=== PATIENT | male | born 1955 | race Asian ===

== ENCOUNTER 2018-03-10 13:32 | Inpatient (IN) | payer BC ==
[~2018-03-10] VITALS: Ht 172.7 cm; Wt 110.7 kg
[~2018-03-10 13:32] MED LIST: LOSA50TA20 PO
[2018-03-10 13:57] VITALS: BP 140/77
[2018-03-10 14:08] VITALS: BP 140/77
[2018-03-10] MEDS: CLOPIDOGREL 75MG TABLET PO SCH (14:15)
[2018-03-10] MEDS: ASPIRIN 81MG EC TABLET PO SCH (14:15)
[2018-03-10] MEDS ORDERED: METO-396 MT (14:24)
[2018-03-10] MEDS ORDERED: CLOP75TA16 MT (14:24)
[2018-03-10] MEDS ORDERED: VALS160T28 MT (14:24)
[2018-03-10] MEDS ORDERED: SIMV10TA6 MT (14:25)
[2018-03-10] MEDS ORDERED: HYDR25TA PO (14:25)
[2018-03-10 16:00] VITALS: BP 112/72
[2018-03-10 18:03] VITALS: BP 114/78
[2018-03-10] MEDS ORDERED: DEXT 5%/0.45% NACL 1000ML 1,000 ML IV SCH (18:28)
[2018-03-10] MEDS ORDERED: ACETAMINOPHEN 650MG SUPP PR PRN (18:30)
[2018-03-10] MEDS ORDERED: MORPHINE SULFATE 4 MG/ML CPJ (NOT FOR IM USE) IV PRN (18:30)
[2018-03-10] MEDS ORDERED: CLONIDINE 0.1MG TABLET PO PRN (18:30)
[2018-03-10] MEDS ORDERED: ONDANSETRON HCL 4MG/2ML VIAL IV PRN (18:30)
[2018-03-10 20:00] VITALS: BP 130/89
[2018-03-10] MEDS: METOPROLOL TARTRATE 50MG TABLET PO SCH (21:00)
[2018-03-10] MEDS: DEXT 5%/0.45% NACL 1000ML 1,000 ML IV SCH (21:06)
[2018-03-10] MEDS: ATORVASTATIN CALCIUM 40MG TABLET PO SCH (21:08)
[2018-03-10 22:00] VITALS: BP 124/60
[2018-03-11] VITALS (13 sets, daily range): BP systolic 107–134; BP diastolic 65–83
[2018-03-11] MEDS: ASPIRIN 81MG EC TABLET PO SCH (07:44)
[2018-03-11] MEDS: CLOPIDOGREL 75MG TABLET PO SCH (07:44)
[2018-03-11] MEDS: METOPROLOL TARTRATE 50MG TABLET PO SCH ×2 (07:44→20:20)
[2018-03-11 07:57] LABS: BASOPHILS % 0.6 % (0.0-2.0); EOSINOPHILS % 3.7 % (0.0-5.0); HEMATOCRIT. 42.8 % (42.0-52.0); HEMOGLOBIN. 14.9 g/dL (14.0-18.0); LYMPHOCYTES % 23.1 % (20.0-50.0); MEAN CORPUSCULAR HEMOGLOBIN 30.9 pg (28.0-32.0); MEAN CORPUSCULAR VOLUME 88.9 fL (80.0-94.0); NEUTROPHILS % 63.6 % (40.0-76.0); PLATELET 217 x1000/uL (130-400); RED BLOOD CELL COUNT 4.81 mill/uL (4.7-6.1); RED CELL DISTRIBUTION WIDTH 13.7 % (11.6-14.6)
[2018-03-11 07:59] LABS: CHLORIDE 103 mEq/L (98-107)
[2018-03-11 08:19] LABS: LDL CHOLESTEROL 92 mg/dL (5-100)
[2018-03-11 08:21] LABS: HDL CHOLESTEROL 40 mg/dL (40-59)
[2018-03-11] MEDS ORDERED: IOHEXOL-300 100 ML BOTTLE ONE ×3 (11:05→11:48)
[2018-03-11] MEDS ORDERED: LIDOCAINE HCL/PF 1% 10 MG/ML 5ML VIAL ONE (11:05)
[2018-03-11] MEDS ORDERED: FENTANYL CITRATE/PF 50MCG/ML 2ML VIAL ONE (11:14)
[2018-03-11] MEDS ORDERED: MIDAZOLAM HCL 2 MG/2 ML VIAL ONE (11:14)
[2018-03-11] MEDS ORDERED: ATROPINE SULFATE 1MG/10ML SYR IV PRN (12:00)
[2018-03-11] MEDS ORDERED: ACETAMINOPHEN 325MG TABLET PO PRN (12:00)
[2018-03-11] MEDS ORDERED: CLOPIDOGREL 75MG TABLET ONE (12:04)
[2018-03-11] MEDS ORDERED: NITROGLYCERIN 50MCG/ML 10ML VIAL (CATH LAB) IV ONE (13:04)
[2018-03-11] MEDS ORDERED: HEPARIN SODIUM 1,000 UNIT/1ML VIAL IV ONE (13:04)
[2018-03-11] MEDS: DEXT 5%/0.45% NACL 1000ML 1,000 ML IV SCH (15:04)
[2018-03-11] MEDS: ATORVASTATIN CALCIUM 40MG TABLET PO SCH (20:20)
[2018-03-12] VITALS (7 sets, daily range): BP systolic 109–138; BP diastolic 62–93
[2018-03-12] MEDS: DEXT 5%/0.45% NACL 1000ML 1,000 ML IV SCH (06:22)
[2018-03-12 07:18] LABS: BASOPHILS % 0.5 % (0.0-2.0); HEMATOCRIT. 41.9 % (42.0-52.0); HEMOGLOBIN. 14.6 g/dL (14.0-18.0); LYMPHOCYTES % 20.7 % (20.0-50.0); MEAN CORPUSCULAR HEMOGLOBIN 31.1 pg (28.0-32.0); MEAN CORPUSCULAR VOLUME 89.1 fL (80.0-94.0); MEAN PLATELET VOLUME 8.2 fl (7.4-10.4); MONOCYTES % 9.6 % (2.0-8.0); NEUTROPHILS % 66.2 % (40.0-76.0); PLATELET 208 x1000/uL (130-400); RED CELL DISTRIBUTION WIDTH 13.9 % (11.6-14.6)
[2018-03-12 07:25] LABS: CHLORIDE 106 mEq/L (98-107)
[2018-03-12] MEDS: ASPIRIN 81MG EC TABLET PO SCH (08:00)
[2018-03-12] MEDS: METOPROLOL TARTRATE 50MG TABLET PO SCH (08:00)
[2018-03-12] MEDS: CLOPIDOGREL 75MG TABLET PO SCH (08:00)
== END 2018-03-12 13:03 | disposition home or self-care (01) | DRG 247 ==
LOC: 3WST 13:32
PROVIDERS: ADMIT Hospitalist; ATTEND Hospitalist
PROC: 027034Z Dilation of Coronary Artery, One Artery with Drug-eluting Intraluminal Device, Percutaneous Approach (ICD-10-PCS; principal; 2018-03-11)
PROC: 4A023N7 Measurement of Cardiac Sampling and Pressure, Left Heart, Percutaneous Approach (ICD-10-PCS; 2018-03-11)
PROC: B2111ZZ Fluoroscopy of Multiple Coronary Arteries using Low Osmolar Contrast (ICD-10-PCS; 2018-03-11)
DX: I21.4 Non-ST elevation (NSTEMI) myocardial infarction (principal); I25.10 Atherosclerotic heart disease of native coronary artery without angina pectoris; I10 Essential (primary) hypertension; Z79.82 Long term (current) use of aspirin; Z95.5 Presence of coronary angioplasty implant and graft
CPT/HCPCS: 36415; 80048; 80053; 80061; 85025; 85347; 92928; 93454; C1760; C1769; C1874; C1887; C1893; J1644; J2250; J3010; J3490; Q9967